=== PATIENT | male | born 1965 | race Caucasian/White ===

== ENCOUNTER 2017-09-05 23:21 | Emergency (ER) | payer SELFPAY, OTHER ==
[2017-09-06] MEDS: KETOROLAC 30 MG INJ IM (01:52)
== END 2017-09-06 02:42 | disposition home or self-care (01) ==
LOC: FTE 23:21
DX: M19.011 Primary osteoarthritis, right shoulder (principal)
CPT/HCPCS: 96372; 99284-25; J1885

== ENCOUNTER 2018-04-12 12:54 | Emergency (ER) | payer SELFPAY ==
[2018-04-12] MEDS: KETOROLAC 30 MG INJ IM (14:56)
[2018-04-12] MEDS: HYDROCODONE/APAP (5/325) TAB PO (14:56)
== END 2018-04-12 16:06 | disposition home or self-care (01) ==
LOC: FTE 12:54
DX: S39.92XA Unspecified injury of lower back, initial encounter (principal); X58.XXXA Exposure to other specified factors, initial encounter; Y92.89 Other specified places as the place of occurrence of the external cause
CPT/HCPCS: 72100; 96372; 99284-25